=== PATIENT | female | born 1995 | race Caucasian/White ===

== ENCOUNTER 2017-10-18 13:41 | Emergency (ER) | payer OTHER | END 2017-10-18 13:43 | disposition home or self-care (01) | LOC: FTE 13:41 → E/R 13:43 | DX: J20.9 Acute bronchitis, unspecified (principal) | CPT/HCPCS: 99284; Z7502 ==

== ENCOUNTER 2018-03-22 16:45 | Emergency (ER) | payer OTHER ==
[2018-03-22 19:12] LABS: ADD MAN DIFF? NO
[2018-03-22 19:13] LABS: WHITE BLOOD COUNT 10.7 10^3/ul (4.8-10.8)
[2018-03-22 19:13] LABS: BASOPHIL # 0.1 10^3/ul (0.0-0.1); BASOPHILS % 0.6 % (0.0-2.0); EOSINOPHILS # 0.3 10^3/ul (0.0-0.5); EOSINOPHILS % 3.2 % (0.0-7.0); HEMATOCRIT 37.9 % (37.0-47.0); LYMPHOCYTES % 9.3 % (15.0-51.0); MEAN CORPUSCULAR HEMOGLOBIN 29.4 pg (29.0-33.0); MEAN CORPUSCULAR HGB CONC 34.3 g/dl (32.0-37.0); MEAN CORPUSCULAR VOLUME 85.7 fl (82.0-101.0); MEAN PLATELET VOLUME 11.4 fl (7.4-10.4); MONOCYTE # 0.9 10^3/ul (0.3-0.9); NEUTROPHIL # 8.4 10^3/ul (1.6-7.5); NEUTROPHILS % 78.6 % (39.0-77.0); PLATELET COUNT 243 10^3/UL (140-415); RED BLOOD COUNT 4.42 10^6/ul (4.20-5.40); RED CELL DISTRIBUTION WIDTH 14.1 % (11.5-14.5)
[2018-03-22] MEDS: AZITHROMYCIN 250 MG TAB PO (19:17)
[2018-03-22] MEDS: SODIUM CHLORIDE 0.9% 1L BAG IV* (19:17)
[2018-03-22] MEDS: CEFTRIAXONE 1 GM/50 ML (PMX) 50 ML IVPB (19:18)
[2018-03-22] MEDS: ACETAMINOPHEN 325 MG TAB PO (19:26)
[2018-03-22] MEDS: KETOROLAC 30 MG INJ IV (19:26)
[2018-03-22 19:29] LABS: INR 1.06; PARTIAL THROMBOPLASTIN TIME 29.8 Sec (25.0-35.0); PROTIME 13.9 Sec (11.9-14.9); PT RATIO 1.1
[2018-03-22 19:40] LABS: ADD UMIC YES; UR ASCORBIC ACID NEGATIVE (NEGATIVE); UR BILIRUBIN (Dip) NEGATIVE (NEGATIVE); UR BLOOD (Dip) 3+ mg/dL (NEGATIVE); UR CLARITY CLEAR (CLEAR); UR COLOR YELLOW (YELLOW); UR GLUCOSE (Dip) NEGATIVE (NEGATIVE); UR KETONES (Dip) NEGATIVE (NEGATIVE); UR LEUKOCYTE ESTERASE (Dip) TRACE Leu/ul (NEGATIVE); UR NITRITE (Dip) NEGATIVE (NEGATIVE); UR RBC > 182 /HPF (0-5); UR SPECIFIC GRAVITY (Dip) 1.006 (1.003-1.030); UR SQUAMOUS EPITHELIAL CELL FEW /HPF (FEW); UR TOTAL PROTEIN (Dip) NEGATIVE (NEGATIVE); UR UROBILINOGEN (Dip) NEGATIVE (NEGATIVE); UR WBC 4 /HPF (0-5)
[2018-03-22 19:57] LABS: ALANINE AMINOTRANSFERASE 19 IU/L (13-69); ALBUMIN 5.1 g/dl (3.3-4.9); ALBUMIN/GLOBULIN RATIO 1.45; ALKALINE PHOSPHATASE 81 IU/L (42-121); ANION GAP 18 (8-16); ASPARTATE AMINO TRANSFERASE 24 IU/L (15-46); BILIRUBIN,INDIRECT 1.4 mg/dl (0-1.1); BILIRUBIN,TOTAL 1.4 mg/dl (0.2-1.3); BLOOD UREA NITROGEN 6 mg/dl (7-20); CARBON DIOXIDE 25 mmol/L (21-31); CHLORIDE 105 mmol/L (97-110); GLUCOSE 99 mg/dl (70-220); POTASSIUM 3.5 mmol/L (3.5-5.1); SODIUM 144 mmol/L (135-144); TOTAL PROTEIN 8.6 g/dl (6.1-8.1)
[2018-03-22 20:01] LABS: LACTIC ACID 4.3 mmol/L (0.5-2.0)
== END 2018-03-22 20:35 | disposition home or self-care (01) ==
LOC: FTE 16:45
DX: R50.9 Fever, unspecified (principal); R05 Cough; R53.1 Weakness; R00.0 Tachycardia, unspecified
CPT/HCPCS: 36415; 71045; 80053; 81001; 81025; 83605; 85025; 85610; 85730; 87040; 87086; 93005; 96365; 96375; 99285-25

== ENCOUNTER 2018-03-27 02:27 | Emergency (ER) | payer OTHER ==
[2018-03-27] MEDS: GUAIFENESIN/CODEINE 5ML CUP PO (03:14)
== END 2018-03-27 03:45 | disposition home or self-care (01) ==
LOC: FTE 02:27
DX: J06.9 Acute upper respiratory infection, unspecified (principal)
CPT/HCPCS: 99283; Z7502

== ENCOUNTER 2018-05-29 10:51 | Emergency (ER) | payer OTHER | END 2018-05-29 12:15 | disposition home or self-care (01) | LOC: FTE 10:51 | DX: J06.9 Acute upper respiratory infection, unspecified (principal) | CPT/HCPCS: 99283; Z7502 ==

== ENCOUNTER 2018-08-13 11:33 | Emergency (ER) | payer OTHER | END 2018-08-13 12:47 | disposition home or self-care (01) | LOC: FTE 11:33 | DX: J00 Acute nasopharyngitis [common cold] (principal); R40.2412 Glasgow coma scale score 13-15, at arrival to emergency department | CPT/HCPCS: 99282 ==

== ENCOUNTER 2018-10-03 21:14 | Emergency (ER) | payer OTHER | END 2018-10-04 00:30 | disposition home or self-care (01) | LOC: FTE 10-04 00:30 | DX: J06.9 Acute upper respiratory infection, unspecified (principal) | CPT/HCPCS: 99282; Z7502 ==